=== PATIENT | male | born 1965 | race African-American/Black ===

== ENCOUNTER 2018-11-09 08:35 | Emergency (ER) | END 2018-11-09 10:36 | disposition left against medical advice (07) | LOC: ERS 08:35 | DX: Z53.21 Procedure and treatment not carried out due to patient leaving prior to being seen by health care provider (principal) ==

== ENCOUNTER 2018-11-09 09:00 | Emergency (ER) | payer SELFPAY ==
[2018-11-09] MEDS ORDERED: methylPREDNISolone Sod Succ/PF 125 MG/2 ML VIAL ONE (09:18)
[2018-11-09] MEDS ORDERED: Water For Inject, Bacteriostat 30 ML ONE (09:19)
== END 2018-11-09 09:42 | disposition home or self-care (01) ==
LOC: SCSER 09:00
DX: T78.40XA Allergy, unspecified, initial encounter (principal); F17.210 Nicotine dependence, cigarettes, uncomplicated
CPT/HCPCS: 96372; J2930

== ENCOUNTER 2019-03-20 10:48 | Emergency (ER) | payer OTHER, SELFPAY ==
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
[2019-03-20] MEDS ORDERED: HYDROcodone/Acetaminophen 5/325 mg Tablet ONE (12:39)
== END 2019-03-20 12:57 | disposition home or self-care (01) ==
LOC: SCSER 10:48
DX: S16.1XXA Strain of muscle, fascia and tendon at neck level, initial encounter (principal); S29.012A Strain of muscle and tendon of back wall of thorax, initial encounter; S00.01XA Abrasion of scalp, initial encounter; S70.312A Abrasion, left thigh, initial encounter; Z71.6 Tobacco abuse counseling; V59.9XXA Occupant (driver) (passenger) of pick-up truck or van injured in unspecified traffic accident, initial encounter
CPT/HCPCS: 70450; 72125; 72128; 99406